=== PATIENT | female | born 1995 | race Two or more races ===

== ENCOUNTER 2022-04-22 21:16 | Emergency (ER) | payer MEDICAID ==
[~2022-04-22] VITALS: Ht 157.5 cm; Wt 60.0 kg
[2022-04-22] MEDS ORDERED: HALOPERIDOL LACTATE 5MG/ML VIAL IM ONE (21:45)
[2022-04-22] MEDS ORDERED: MIDAZOLAM HCL 2 MG/2 ML VIAL IM ONE (21:45)
[2022-04-22] MEDS ORDERED: HALOPERIDOL LACTATE 5MG/ML VIAL IM NR (21:45)
[2022-04-22] MEDS ORDERED: MIDAZOLAM HCL 2 MG/2 ML VIAL IM NR (21:45)
[2022-04-22 22:27] LABS: CLARITY URINE CLOUDY (CLEAR); COLOR URINE DARK YELLOW (YELLOW); KETONES URINE TRACE (NEGATIVE); LEUKOCYTE ESTERASE URINE NEGATIVE (NEGATIVE); NITRITE URINE NEGATIVE (NEGATIVE); OCCULT BLOOD URINE TRACE (NEGATIVE); PH URINE 5.5 (4.5-8.0); PROTEIN URINE 2+ (NEGATIVE); SPECIFIC GRAVITY URINE 1.025 (1.005-1.030)
[2022-04-22 22:44] LABS: *AMPHETAMINES SCREEN URINE NEGATIVE (NEGATIVE); *BARBITURATES SCREEN URINE NEGATIVE (NEGATIVE); *BENZODIAZEPINES SCREEN URINE NEGATIVE (NEGATIVE); *COCAINE SCREEN URINE NEGATIVE (NEGATIVE); METHADONE URINE SCREEN NEGATIVE (NEGATIVE); OPIATES URINE SCREEN NEGATIVE (NEGATIVE); PHENCYCLIDINE URINE SCREEN NEGATIVE (NEGATIVE)
[2022-04-22 23:11] LABS: BASOPHILS % 0.3 % (0.0-2.0); EOSINOPHILS % 0.7 % (0.0-5.0); HEMATOCRIT. 40.5 % (36.0-48.0); HEMOGLOBIN. 13.8 g/dL (12.0-16.0); LYMPHOCYTES % 21.3 % (20.0-50.0); MEAN CORPUSCULAR HEMOGLOBIN 30.7 pg (28.0-32.0); MEAN CORPUSCULAR VOLUME 89.8 fL (81.0-99.0); MEAN PLATELET VOLUME 8.4 fl (7.4-10.4); NEUTROPHILS % 68.7 % (40.0-76.0); PLATELET 243 x1000/uL (130-400); RED BLOOD CELL COUNT 4.51 mill/uL (4.2-5.4)
[2022-04-22 23:14] LABS: CANNABINOID URINE SCREEN PRESUMTIVE POSITIVE (NEGATIVE)
[2022-04-22 23:20] LABS: CHLORIDE 101 mEq/L (98-107)
[2022-04-22 23:24] LABS: HCG SCREEN NEGATIVE
[2022-04-22 23:28] LABS: ETHANOL BLOOD < 10 mg/dL
[2022-04-23] MEDS: OLANZAPINE 5MG TABLET ODT PO SCH (13:00)
[2022-04-24] MEDS: OLANZAPINE 5MG TABLET ODT PO SCH (09:24)
[2022-04-24] MEDS: DIVALPROEX SODIUM 250MG DR TABLET PO SCH ×3 (09:25→21:45)
[2022-04-25 08:00] VITALS: BP 110/65
[2022-04-25] MEDS: OLANZAPINE 5MG TABLET ODT PO SCH (10:53)
[2022-04-25] MEDS: DIVALPROEX SODIUM 250MG DR TABLET PO SCH (10:53)
== END 2022-04-25 11:02 | disposition home or self-care (01) ==
LOC: ER 21:16
DX: F32.A Depression, unspecified (principal); F20.9 Schizophrenia, unspecified; F41.9 Anxiety disorder, unspecified; R45.851 Suicidal ideations; F91.8 Other conduct disorders; F12.10 Cannabis abuse, uncomplicated; Z20.822 Contact with and (suspected) exposure to COVID-19; Z78.1 Physical restraint status; Z75.1 Person awaiting admission to adequate facility elsewhere
CPT/HCPCS: 36415; 80053; 80305; 80307; 80320; 80329; 81003; 84703; 85025; 96372; 99285; C9803; J1630; J2250; U0003; U0005; G0480